=== PATIENT | female | born 1965 | race Caucasian/White ===

== ENCOUNTER 2018-02-25 15:48 | Emergency (ER) | payer SELFPAY ==
[~2018-02-25] VITALS: Ht 162.6 cm; Wt 48.5 kg
[2018-02-25] MEDS ORDERED: ACET325 PO (17:03)
[2018-02-25] MEDS ORDERED: CYCL10 PO (17:44)
== END 2018-02-25 17:48 | disposition home or self-care (01) ==
LOC: ER 15:48
DX: M54.5 Low back pain (principal); F17.200 Nicotine dependence, unspecified, uncomplicated; Z88.5 Allergy status to narcotic agent; Z91.09 Other allergy status, other than to drugs and biological substances; Z91.013 Allergy to seafood
CPT/HCPCS: 99283

== ENCOUNTER 2018-11-01 11:58 | Emergency (ER) | payer OTHER ==
[~2018-11-01] VITALS: Ht 162.6 cm; Wt 49.9 kg
[~2018-11-01 11:58] MED LIST: ACET325 PO; CYCL10 PO
[2018-11-01] MEDS ORDERED: Cyclobenzaprine5 MG PO (13:13)
== END 2018-11-01 13:21 | disposition home or self-care (01) ==
LOC: ER 11:58
DX: M54.12 Radiculopathy, cervical region (principal); F17.200 Nicotine dependence, unspecified, uncomplicated; Z88.5 Allergy status to narcotic agent; Z91.09 Other allergy status, other than to drugs and biological substances; Z91.018 Allergy to other foods
CPT/HCPCS: 72040; 99283-25

== ENCOUNTER 2019-04-03 01:19 | Emergency (ER) | payer MEDICAID ==
[~2019-04-03] VITALS: Ht 162.6 cm; Wt 49.9 kg
[~2019-04-03 01:19] MED LIST changes: +Cyclobenzaprine5 MG PO
[2019-04-03] MEDS ORDERED: Prednisone20 MG PO (03:18)
== END 2019-04-03 03:35 | disposition home or self-care (01) ==
LOC: ER 01:19
DX: J02.9 Acute pharyngitis, unspecified (principal); K13.79 Other lesions of oral mucosa; F17.210 Nicotine dependence, cigarettes, uncomplicated; Z79.52 Long term (current) use of systemic steroids
CPT/HCPCS: 87081; 87430; 96372; 99283-25; J1885; J7512